=== PATIENT | male | born 1980 | race Caucasian/White ===

== ENCOUNTER 2018-06-08 20:34 | Emergency (ER) | payer SELFPAY ==
[~2018-06-08] VITALS: Ht 162.6 cm; Wt 68.6 kg
[2018-06-08 23:16] VITALS: BP 105/61
== END 2018-06-08 23:17 | disposition home or self-care (01) ==
LOC: ED 20:34
DX: G43.909 Migraine, unspecified, not intractable, without status migrainosus (principal)
CPT/HCPCS: J0780; J1885